=== PATIENT | male | born 2000 | race Caucasian/White ===

== ENCOUNTER 2019-08-25 07:34 | Emergency (ER) | payer OTHER, BC ==
[~2019-08-25] VITALS: Ht 182.8 cm; Wt 77.1 kg
[~2019-08-25 07:34] MED LIST: NKHM
[2019-08-25 07:49] VITALS: BP 156/83
[2019-08-25 07:55] LABS: BASO % 0.4 % (0.0-1.0); EOS # 0.2 10*3/uL (0.0-0.4); EOS % 2.5 % (1.0-4.0); HEMATOCRIT 45.2 % (42.0-52.0); LYMPH # 1.5 10*3/uL (1.3-4.4); LYMPH % 20.5 % (27.0-41.0); MEAN CELL VOLUME 90.4 fl (80.0-94.0); MEAN CORPUSCULAR HGB CONC 33.2 g/dl (33.0-37.0); MEAN PLATELET VOLUME 9.9 fl (9.6-12.3); MONO # 0.6 10*3/uL (0.1-1.0); NEUT # 5.1 10*3/uL (2.3-7.9); NEUT % 68.5 % (47.0-73.0); PLATELET COUNT AUTOMATED 251 10*3/uL (130-400); RED CELL DISTRI WIDTH 12.5 % (0-14.5); WHITE BLOOD COUNT 7.5 10*3/uL (4.8-10.8)
[2019-08-25 08:09] LABS: ALBUMIN 4.5 gm/dl (3.1-4.5); ALKALINE PHOSPHATASE 64 U/L (45-117); BUN 11 mg/dl (7-24); CHLORIDE 105 mmol/L (98-107); POTASSIUM 3.7 mmol/L (3.5-5.1); SGOT/AST 19 IU/L (3-35); SGPT/ALT 37 U/L (12-78); SODIUM 138 mmol/L (136-145); TOTAL PROTEIN 7.8 gm/dL (6.4-8.2)
== END 2019-08-25 09:44 | disposition home or self-care (01) ==
LOC: ED 07:34
PROVIDERS: Emergency Medicine
DX: T22.511A Corrosion of first degree of right forearm, initial encounter (principal); T23.501A Corrosion of first degree of right hand, unspecified site, initial encounter; T23.502A Corrosion of first degree of left hand, unspecified site, initial encounter; T22.512A Corrosion of first degree of left forearm, initial encounter; T49.0X1A Poisoning by local antifungal, anti-infective and anti-inflammatory drugs, accidental (unintentional), initial encounter; T32.0 Corrosions involving less than 10% of body surface; Y93.89 Activity, other specified; Y92.89 Other specified places as the place of occurrence of the external cause; Y99.8 Other external cause status

== ENCOUNTER 2019-08-28 17:40 | Emergency (ER) | payer OTHER ==
[~2019-08-28] VITALS: Ht 182.8 cm; Wt 79.4 kg
[2019-08-28 17:45] VITALS: BP 142/75
== END 2019-08-28 18:21 | disposition home or self-care (01) ==
LOC: ED 17:40
DX: T22.51 Corrosion of first degree of forearm (principal); T49 Poisoning by, adverse effect of and underdosing of topical agents primarily affecting skin and mucous membrane and by ophthalmological, otorhinorlaryngological and dental drugs; Y92.89 Other specified places as the place of occurrence of the external cause

== ENCOUNTER → 2019-10-19 | Outpatient (CLI) | payer OTHER ==
[2019-10-19 12:53] LABS: BASO % 0.5 % (0.0-1.0); EOS # 0.1 10*3/uL (0.0-0.4); EOS % 1.6 % (1.0-4.0); HEMATOCRIT 43.8 % (42.0-52.0); LYMPH # 1.7 10*3/uL (1.3-4.4); LYMPH % 27.7 % (27.0-41.0); MEAN CELL VOLUME 88.8 fl (80.0-94.0); MEAN CORPUSCULAR HGB 30.4 pg (27.0-31.0); MEAN CORPUSCULAR HGB CONC 34.2 g/dl (33.0-37.0); MEAN PLATELET VOLUME 10.6 fl (9.6-12.3); MONO # 0.4 10*3/uL (0.1-1.0); MONO % 6.4 % (3.0-9.0); NEUT % 63.5 % (47.0-73.0); PLATELET COUNT AUTOMATED 234 10*3/uL (130-400); RED BLOOD COUNT 4.93 10*6/uL (4.50-5.90); RED CELL DISTRI WIDTH 12.3 % (0-14.5); WHITE BLOOD COUNT 6.3 10*3/uL (4.8-10.8)
== END | disposition home or self-care (01) ==
LOC: LAB 12:15
PROVIDERS: Family Medicine
DX: D72.829 Elevated white blood cell count, unspecified (principal)

== ENCOUNTER 2020-12-17 21:59 | Emergency (ER) | payer SELFPAY ==
[~2020-12-17] VITALS: Ht 182.8 cm; Wt 74.8 kg
[2020-12-17 22:01] VITALS: BP 124/73
== END 2020-12-18 01:21 | disposition home or self-care (01) ==
LOC: ED 21:59
DX: T15.81XA Foreign body in other and multiple parts of external eye, right eye, initial encounter (principal); X58.XXXA Exposure to other specified factors, initial encounter; Y93.89 Activity, other specified; Y92.89 Other specified places as the place of occurrence of the external cause; Y99.0 Civilian activity done for income or pay